=== PATIENT | female | born 1940 | race Two or more races ===

== ENCOUNTER 2024-02-25 18:53 | Inpatient (IN) | payer OTHER ==
[~2024-02-25] VITALS: Ht 160 cm; Wt 55.3 kg
[2024-02-25 20:15] LABS: BASOPHILS # (AUTO) 0.1 K/uL (0.0-0.2); BASOPHILS % (AUTO) 1.3 % (0.0-2.0); EOSINOPHILS # (AUTO) 0.2 K/uL (0.0-0.7); EOSINOPHILS % (AUTO) 2.9 % (0.0-6.0); HEMATOCRIT 34 % (33-45); HEMOGLOBIN 10.5 g/dL (11.5-14.8); LYMPHOCYTES # (AUTO) 1.3 K/uL (0.8-4.8); LYMPHOCYTES % (AUTO) 14.9 % (20.0-44.0); MEAN CORPUSCULAR HEMOGLOBIN 23 PG (26.0-33.0); MEAN CORPUSCULAR HGB CONC 31 g/dl (31.0-36.0); MEAN CORPUSCULAR VOLUME 74 fL (82-100); MONOCYTES # (AUTO) 0.7 K/uL (0.1-1.30); MONOCYTES % (AUTO) 7.7 % (2.0-12.0); NEUTROPHILS # (AUTO) 6.3 K/uL (1.8-8.9); NEUTROPHILS % (AUTO) 73.2 % (43.0-81.0); PLATELET COUNT (AUTO) 262 K/uL (150-450); RED BLOOD CELL COUNT(AUTO) 4.57 MIL/uL (4.0-5.2); RED CELL DISTRIBUTION WIDTH 16.1 % (11.5-15.0); WHITE BLOOD COUNT (AUTO) 8.5 K/uL (4.3-11.0)
[2024-02-25 20:31] LABS: ALANINE AMINOTRANSFERASE 20 U/L (12-78); ALBUMIN 2.8 g/dL (3.4-5.0); ALCOHOL, BLOOD < 3 mg/dL (0-10); ALKALINE PHOSPHATASE 84 U/L (46-116); ASPARTATE AMINOTRANSFERASE 18 U/L (15-37); BILIRUBIN,DIRECT 0.1 mg/dL (0.0-0.2); BILIRUBIN,TOTAL 0.3 mg/dL (0.2-1.0); CALCIUM, SERUM 9.3 mg/dL (8.5-10.1); CARBON DIOXIDE 29 mmol/L (21-32); CHLORIDE 109 mmol/L (98-107); CREATININE 1.1 mg/dL (0.6-1.3); GLUCOSE 105 mg/dL (74-106); POTASSIUM 4.1 mmol/L (3.5-5.1); SODIUM SERUM 142 mmol/L (136-145); TOTAL PROTEIN, SERUM 6.5 g/dL (6.4-8.2); UREA NITROGEN, BLOOD 19 mg/dL (7-18)
[2024-02-25 20:35] LABS: INR 0.92 (0.91-1.10); PARTIAL THROMBOPLASTIN TIME 21.3 SEC (24.3-34.3); PROTHROMBIN TIME 9.5 SECS (9.2-11.1)
[2024-02-25 20:53] LABS: SERUM AMMONIA 10 umol/L (11-32)
[2024-02-25 22:04] LABS: APPEARANCE,URINE Clear (CLEAR); BILIRUBIN,URINE Negative (NEGATIVE); BLOOD, URINE Negative Ery/uL (NEGATIVE); COLOR,URINE YELLOW (YELLOW); KETONES,URINE Negative (NEGATIVE); LEUKOCYTE ESTERASE ,URINE Negative (NEGATIVE); NITRITE, URINE Negative (NEGATIVE); PROTEIN,URINE Negative (NEGATIVE); UGLUCOSE Negative (NEGATIVE); UROBILINOGEN,URINE 0.2 EU/dL (0.2)
[2024-02-25] MEDS ORDERED: ACETAMINOPHEN 325 MG TABLET ONE (23:00)
[2024-02-25] MEDS: ACETAMINOPHEN 325 MG TABLET PO ONE (23:05)
[2024-02-26] MEDS ORDERED: Z GUARD REMEDY 4 OZ OINT TP PRN (00:30)
[2024-02-26] MEDS ORDERED: ZOLPIDEM TARTRATE 5 MG TABLET PO PRN (00:30)
[2024-02-26] MEDS ORDERED: ACETAMINOPHEN 325 MG TABLET PO PRN (00:30)
[2024-02-26] MEDS ORDERED: MAG HYDROX/AL HYDROX/SIMETH 30 ML UDC PO PRN (00:30)
[2024-02-26] MEDS ORDERED: MAGNESIUM HYDROXIDE 30 ML UDC PO PRN (00:30)
[2024-02-26] MEDS ORDERED: ONDANSETRON HCL/PF 4 MG/2 ML VIAL IVP PRN (00:30)
[2024-02-26] MEDS ORDERED: LEFL20TA PO (00:32)
[2024-02-26] MEDS ORDERED: BUPR200T31 PO (00:32)
[2024-02-26] MEDS ORDERED: MEMA10TA PO (00:32)
[2024-02-26] MEDS ORDERED: AMLO-213 PO (00:32)
[2024-02-26] MEDS ORDERED: DULO20CA PO (00:32)
[2024-02-26] MEDS ORDERED: OMEP20CA15 PO (00:32)
[2024-02-26] MEDS ORDERED: CHOL100062 PO (00:32)
[2024-02-26] MEDS ORDERED: CALC-1276 PO (00:32)
[2024-02-26] MEDS ORDERED: ATOR20TA PO (00:32)
[2024-02-26] MEDS ORDERED: LEVO137T24 PO (00:32)
[2024-02-26] MEDS ORDERED: NALOXONE PREFILLED SYRINGE 2 MG/2 ML SYRINGE ONE ×2 (00:52→00:54)
[2024-02-26 01:20] VITALS: BP 158/80; TEMP 98.2; O2SAT 97
[2024-02-26 04:00] VITALS: BP 145/78; TEMP 97.7; O2SAT 97
[2024-02-26 08:00] VITALS: BP 153/84; TEMP 97.7; O2SAT 96
[2024-02-26] MEDS ORDERED: MEMA5TAB42 PO (08:30)
[2024-02-26] MEDS ORDERED: BUPR100T7 PO (08:30)
[2024-02-26] MEDS ORDERED: CALC500T89 PO (08:30)
[2024-02-26] MEDS ORDERED: CHOL200059 PO (08:30)
[2024-02-26] MEDS ORDERED: ACET-637 PO (08:30)
[2024-02-26] MEDS ORDERED: DOCU100C36 PO (08:30)
[2024-02-26] MEDS ORDERED: FAMO20TA8 PO (08:31)
[2024-02-26] MEDS ORDERED: CICL6.6S19 TP (08:31)
[2024-02-26] MEDS ORDERED: POLY17PO4 PO (08:31)
[2024-02-26] MEDS ORDERED: FAMOTIDINE (20 MG) 20 MG TABLET PO PRN (09:00)
[2024-02-26] MEDS ORDERED: ACETAMINOPHEN ES 500 MG TABLET PO PRN (09:00)
[2024-02-26] MEDS: LEVOTHYROXINE SODIUM 137 MCG TABLET PO SCH (09:26)
[2024-02-26] MEDS: DULOXETINE HCL 20 MG CAPSULE.DR PO SCH (09:26)
[2024-02-26] MEDS: CALCIUM CARBONATE (1250) 500 MG TABLET PO SCH (09:27)
[2024-02-26] MEDS: MEMANTINE HCL 5 MG TABLET PO SCH (09:27)
[2024-02-26] MEDS: AMLODIPINE BESYLATE 10 MG TABLET PO SCH (09:27)
[2024-02-26] MEDS: IV NS 0.9% 1,000 ML IV SCH (09:28)
[2024-02-26] MEDS: LEFLUNOMIDE 20 MG TABLET PO SCH (09:33)
[2024-02-26] MEDS: buPROPion SR 100 MG TABLET.ER PO SCH (09:33)
[2024-02-26 12:00] VITALS: BP 164/71; TEMP 97.3; O2SAT 93
[2024-02-26 14:50] LABS: BASOPHILS # (AUTO) 0.1 K/uL (0.0-0.2); BASOPHILS % (AUTO) 0.6 % (0.0-2.0); EOSINOPHILS # (AUTO) 0.2 K/uL (0.0-0.7); EOSINOPHILS % (AUTO) 2.8 % (0.0-6.0); HEMATOCRIT 35 % (33-45); HEMOGLOBIN 10.8 g/dL (11.5-14.8); LYMPHOCYTES # (AUTO) 0.8 K/uL (0.8-4.8); LYMPHOCYTES % (AUTO) 10.6 % (20.0-44.0); MEAN CORPUSCULAR HEMOGLOBIN 23 PG (26.0-33.0); MEAN CORPUSCULAR HGB CONC 31 g/dl (31.0-36.0); MEAN CORPUSCULAR VOLUME 74 fL (82-100); MONOCYTES # (AUTO) 0.8 K/uL (0.1-1.30); MONOCYTES % (AUTO) 9.7 % (2.0-12.0); NEUTROPHILS # (AUTO) 6.1 K/uL (1.8-8.9); NEUTROPHILS % (AUTO) 76.3 % (43.0-81.0); PLATELET COUNT (AUTO) 209 K/uL (150-450); RED BLOOD CELL COUNT(AUTO) 4.67 MIL/uL (4.0-5.2); RED CELL DISTRIBUTION WIDTH 16.5 % (11.5-15.0)
[2024-02-26 15:00] LABS: CALCIUM, SERUM 9.8 mg/dL (8.5-10.1); CARBON DIOXIDE 26 mmol/L (21-32); CHLORIDE 108 mmol/L (98-107); CREATININE 0.6 mg/dL (0.6-1.3); GLUCOSE 91 mg/dL (74-106); POTASSIUM 3.8 mmol/L (3.5-5.1); SODIUM SERUM 141 mmol/L (136-145); UREA NITROGEN, BLOOD 11 mg/dL (7-18)
[2024-02-26] MEDS ORDERED: ATORVASTATIN 10 MG TABLET PO SCH (18:00)
== END 2024-02-26 17:39 | disposition short-term general hospital (02) | DRG 56 ==
LOC: ER 18:55 → TELE1 02-26 00:20
PROVIDERS: ADMIT Student in an Organized Health Care Education/Training Program; ATTEND Student in an Organized Health Care Education/Training Program
DX: G91.2 (Idiopathic) normal pressure hydrocephalus (principal); I21.A1 Myocardial infarction type 2; E44.0 Moderate protein-calorie malnutrition; W19.XXXA Unspecified fall, initial encounter; F03.90 Unspecified dementia, unspecified severity, without behavioral disturbance, psychotic disturbance, mood disturbance, and anxiety; E03.9 Hypothyroidism, unspecified; D64.9 Anemia, unspecified; E86.0 Dehydration; Z88.2 Allergy status to sulfonamides; R29.6 Repeated falls; I10 Essential (primary) hypertension; Z68.21 Body mass index [BMI] 21.0-21.9, adult; Y93.9 Activity, unspecified; Y92.89 Other specified places as the place of occurrence of the external cause; R90.89 Other abnormal findings on diagnostic imaging of central nervous system
CPT/HCPCS: 36415; 70450-TC; 71045-TC; 72125-TC; 80048-TC; 80076-TC; 82140-TC; 82962-TC; 84443-TC; 84484-TC; 85025-TC; 85730-TC; 93307-TC; G0378; G0480; J2310

== ENCOUNTER 2024-05-19 21:50 | Emergency (ER) | payer OTHER ==
[~2024-05-19] VITALS: Ht 149.9 cm; Wt 43.1 kg
[~2024-05-19 21:50] MED LIST: ACET-637 PO; AMLO-213 PO; ATOR20TA PO; BUPR100T7 PO; CALC500T89 PO; CHOL200059 PO; CICL6.6S19 TP; DOCU100C36 PO; DULO20CA PO; FAMO20TA8 PO; LEFL20TA PO; LEVO137T24 PO; MEMA5TAB42 PO; OMEP20CA15 PO; POLY17PO4 PO
[2024-05-19 22:05] VITALS: TEMP 97.9
[2024-05-19] MEDS ORDERED: ACETAMINOPHEN ES 500 MG TABLET ONE (22:55)
[2024-05-19] MEDS: ACETAMINOPHEN ES 500 MG TABLET PO ONE (23:00)
[2024-05-19 23:05] LABS: BASOPHILS # (AUTO) 0.1 K/uL (0.0-0.2); BASOPHILS % (AUTO) 0.6 % (0.0-2.0); EOSINOPHILS # (AUTO) 0.2 K/uL (0.0-0.7); EOSINOPHILS % (AUTO) 1.8 % (0.0-6.0); HEMATOCRIT 36 % (33-45); HEMOGLOBIN 11.1 g/dL (11.5-14.8); LYMPHOCYTES # (AUTO) 1.3 K/uL (0.8-4.8); LYMPHOCYTES % (AUTO) 10.9 % (20.0-44.0); MEAN CORPUSCULAR HEMOGLOBIN 23 PG (26.0-33.0); MEAN CORPUSCULAR HGB CONC 31 g/dl (31.0-36.0); MEAN CORPUSCULAR VOLUME 75 fL (82-100); MONOCYTES # (AUTO) 0.8 K/uL (0.1-1.30); MONOCYTES % (AUTO) 6.5 % (2.0-12.0); NEUTROPHILS # (AUTO) 9.3 K/uL (1.8-8.9); NEUTROPHILS % (AUTO) 80.2 % (43.0-81.0); PLATELET COUNT (AUTO) 216 K/uL (150-450); RED BLOOD CELL COUNT(AUTO) 4.76 MIL/uL (4.0-5.2); WHITE BLOOD COUNT (AUTO) 11.6 K/uL (4.3-11.0)
[2024-05-19 23:15] LABS: CALCIUM, SERUM 10.3 mg/dL (8.5-10.1); CARBON DIOXIDE 29 mmol/L (21-32); CHLORIDE 108 mmol/L (98-107); CREATININE 0.9 mg/dL (0.6-1.3); GLUCOSE 116 mg/dL (74-106); POTASSIUM 3.9 mmol/L (3.5-5.1); SODIUM SERUM 143 mmol/L (136-145); UREA NITROGEN, BLOOD 21 mg/dL (7-18)
[2024-05-19 23:19] LABS: ALANINE AMINOTRANSFERASE 29 U/L (12-78); ALBUMIN 2.8 g/dL (3.4-5.0); ALKALINE PHOSPHATASE 86 U/L (46-116); ASPARTATE AMINOTRANSFERASE 15 U/L (15-37); BILIRUBIN,DIRECT 0.1 mg/dL (0.0-0.2); BILIRUBIN,TOTAL 0.3 mg/dL (0.2-1.0); NT-PRO BNP 213 pg/mL (0-125); TOTAL PROTEIN, SERUM 6.9 g/dL (6.4-8.2)
[2024-05-20] MEDS: ASPIRIN 325 MG TABLET PO ONE (03:02)
[2024-05-20 05:38] LABS: APPEARANCE,URINE CLEAR (CLEAR); BILIRUBIN,URINE NEGATIVE (NEGATIVE); BLOOD, URINE NEGATIVE Ery/uL (NEGATIVE); COLOR,URINE YELLOW (YELLOW); KETONES,URINE NEGATIVE (NEGATIVE); LEUKOCYTE ESTERASE ,URINE NEGATIVE (NEGATIVE); NITRITE, URINE NEGATIVE (NEGATIVE); PROTEIN,URINE NEGATIVE (NEGATIVE); UGLUCOSE NEGATIVE (NEGATIVE); UROBILINOGEN,URINE 0.2 EU/dL (0.2)
[2024-05-20 06:02] VITALS: BP 147/73; O2SAT 95
== END 2024-05-20 07:53 | disposition short-term general hospital (02) ==
LOC: ER 21:53
DX: S09.8XXA Other specified injuries of head, initial encounter (principal); F03.90 Unspecified dementia, unspecified severity, without behavioral disturbance, psychotic disturbance, mood disturbance, and anxiety; E03.9 Hypothyroidism, unspecified; I10 Essential (primary) hypertension; F32.9 Major depressive disorder, single episode, unspecified; Z88.8 Allergy status to other drugs, medicaments and biological substances; Z88.2 Allergy status to sulfonamides; W18.39XA Other fall on same level, initial encounter; Y93.89 Activity, other specified; Y92.89 Other specified places as the place of occurrence of the external cause; Y99.8 Other external cause status
CPT/HCPCS: 36415; 70450-TC; 71045-TC; 72125-TC; 72170-TC; 80048-TC; 80076-TC; 82962-TC; 83880; 84484-TC; 85025-TC; 87086-TC

== ENCOUNTER 2024-07-18 00:50 | Emergency (ER) | payer OTHER ==
[~2024-07-18] VITALS: Ht 160 cm; Wt 49.9 kg
[2024-07-18 01:54] LABS: BASOPHILS # (AUTO) 0.1 K/uL (0.0-0.2); BASOPHILS % (AUTO) 0.8 % (0.0-2.0); EOSINOPHILS # (AUTO) 0.2 K/uL (0.0-0.7); EOSINOPHILS % (AUTO) 2.8 % (0.0-6.0); HEMATOCRIT 35 % (33-45); HEMOGLOBIN 11.4 g/dL (11.5-14.8); LYMPHOCYTES # (AUTO) 1.4 K/uL (0.8-4.8); LYMPHOCYTES % (AUTO) 15.8 % (20.0-44.0); MEAN CORPUSCULAR HEMOGLOBIN 25 PG (26.0-33.0); MEAN CORPUSCULAR HGB CONC 32 g/dl (31.0-36.0); MEAN CORPUSCULAR VOLUME 76 fL (82-100); MONOCYTES # (AUTO) 0.7 K/uL (0.1-1.30); MONOCYTES % (AUTO) 8.5 % (2.0-12.0); NEUTROPHILS # (AUTO) 6.2 K/uL (1.8-8.9); NEUTROPHILS % (AUTO) 72.1 % (43.0-81.0); PLATELET COUNT (AUTO) 246 K/uL (150-450); RED BLOOD CELL COUNT(AUTO) 4.64 MIL/uL (4.0-5.2); RED CELL DISTRIBUTION WIDTH 15.9 % (11.5-15.0); WHITE BLOOD COUNT (AUTO) 8.6 K/uL (4.3-11.0)
[2024-07-18 02:09] LABS: CALCIUM, SERUM 9.9 mg/dL (8.5-10.1); CARBON DIOXIDE 29 mmol/L (21-32); CHLORIDE 110 mmol/L (98-107); CREATININE 0.9 mg/dL (0.6-1.3); GLUCOSE 121 mg/dL (74-106); SODIUM SERUM 144 mmol/L (136-145); UREA NITROGEN, BLOOD 20 mg/dL (7-18)
[2024-07-18 02:15] LABS: ALANINE AMINOTRANSFERASE 33 U/L (12-78); ALBUMIN 2.7 g/dL (3.4-5.0); ALKALINE PHOSPHATASE 81 U/L (46-116); ASPARTATE AMINOTRANSFERASE 18 U/L (15-37); BILIRUBIN,TOTAL 0.2 mg/dL (0.2-1.0); NT-PRO BNP 641 pg/mL (0-125); TOTAL PROTEIN, SERUM 6.5 g/dL (6.4-8.2)
[2024-07-18 04:13] LABS: APPEARANCE,URINE CLEAR (CLEAR); BILIRUBIN,URINE NEGATIVE (NEGATIVE); BLOOD, URINE NEGATIVE Ery/uL (NEGATIVE); COLOR,URINE YELLOW (YELLOW); KETONES,URINE NEGATIVE (NEGATIVE); LEUKOCYTE ESTERASE ,URINE NEGATIVE (NEGATIVE); NITRITE, URINE NEGATIVE (NEGATIVE); PROTEIN,URINE NEGATIVE (NEGATIVE); UGLUCOSE NEGATIVE (NEGATIVE); UROBILINOGEN,URINE 0.2 EU/dL (0.2)
[2024-07-18] MEDS ORDERED: ASPIRIN 81 MG TAB.CHEW ONE (06:56)
[2024-07-18] MEDS: ASPIRIN 81 MG TAB.CHEW PO ONE (07:02)
[2024-07-18 07:30] VITALS: BP 150/84; TEMP 98; O2SAT 99
== END 2024-07-18 08:46 | disposition short-term general hospital (02) ==
LOC: ER 00:51
DX: I11.0 Hypertensive heart disease with heart failure (principal); M25.512 Pain in left shoulder; F03.93 Unspecified dementia, unspecified severity, with mood disturbance; E03.9 Hypothyroidism, unspecified; F32.A Depression, unspecified; Z88.2 Allergy status to sulfonamides; W06.XXXA Fall from bed, initial encounter
CPT/HCPCS: 36415; 70450-TC; 71045-TC; 73030-TC; 80053-TC; 83880; 84484-TC; 85025-TC

== ENCOUNTER 2024-10-08 05:26 | Emergency (ER) | payer OTHER ==
[~2024-10-08] VITALS: Ht 160 cm; Wt 55.3 kg
[2024-10-08] MEDS ORDERED: ACETAMINOPHEN 325 MG TABLET ONE (05:48)
[2024-10-08] MEDS: ACETAMINOPHEN 325 MG TABLET PO ONE (05:52)
[2024-10-08 11:12] VITALS: BP 101/78; TEMP 98.4; O2SAT 94
== END 2024-10-08 11:14 ==
LOC: ER 05:29
DX: R10.2 Pelvic and perineal pain (principal); E03.9 Hypothyroidism, unspecified; F03.90 Unspecified dementia, unspecified severity, without behavioral disturbance, psychotic disturbance, mood disturbance, and anxiety; I10 Essential (primary) hypertension; Z79.69 Long term (current) use of other immunomodulators and immunosuppressants; Z79.890 Hormone replacement therapy; Z79.899 Other long term (current) drug therapy; Z88.2 Allergy status to sulfonamides; Z88.8 Allergy status to other drugs, medicaments and biological substances; Z91.041 Radiographic dye allergy status; W18.30XA Fall on same level, unspecified, initial encounter; Y93.89 Activity, other specified; Y92.89 Other specified places as the place of occurrence of the external cause; Y99.8 Other external cause status
CPT/HCPCS: 72170-TC

== ENCOUNTER 2024-10-28 22:49 | Inpatient (IN) | payer OTHER ==
[~2024-10-28] VITALS: Ht 162.6 cm; Wt 61.2 kg
[2024-10-28 23:47] LABS: BASOPHILS # (AUTO) 0.1 K/uL (0.0-0.2); BASOPHILS % (AUTO) 0.7 % (0.0-2.0); EOSINOPHILS # (AUTO) 0.2 K/uL (0.0-0.7); EOSINOPHILS % (AUTO) 2.3 % (0.0-6.0); HEMATOCRIT 33 % (33-45); HEMOGLOBIN 10.4 g/dL (11.5-14.8); LYMPHOCYTES # (AUTO) 0.8 K/uL (0.8-4.8); LYMPHOCYTES % (AUTO) 7.1 % (20.0-44.0); MEAN CORPUSCULAR HEMOGLOBIN 23 PG (26.0-33.0); MEAN CORPUSCULAR HGB CONC 31 g/dl (31.0-36.0); MEAN CORPUSCULAR VOLUME 75 fL (82-100); MONOCYTES # (AUTO) 0.5 K/uL (0.1-1.30); MONOCYTES % (AUTO) 4.8 % (2.0-12.0); NEUTROPHILS % (AUTO) 85.1 % (43.0-81.0); PLATELET COUNT (AUTO) 333 K/uL (150-450); RED BLOOD CELL COUNT(AUTO) 4.49 MIL/uL (4.0-5.2); RED CELL DISTRIBUTION WIDTH 14.7 % (11.5-15.0); WHITE BLOOD COUNT (AUTO) 10.6 K/uL (4.3-11.0)
[2024-10-29 00:14] LABS: ALANINE AMINOTRANSFERASE 13 U/L (12-78); ALKALINE PHOSPHATASE 72 U/L (46-116); ASPARTATE AMINOTRANSFERASE 15 U/L (15-37); BILIRUBIN,DIRECT 0.1 mg/dL (0.0-0.2); BILIRUBIN,TOTAL 0.3 mg/dL (0.2-1.0); CALCIUM, SERUM 10.3 mg/dL (8.5-10.1); CARBON DIOXIDE 33 mmol/L (21-32); CHLORIDE 106 mmol/L (98-107); CREATININE 0.8 mg/dL (0.6-1.3); GLUCOSE 147 mg/dL (74-106); NT-PRO BNP 614 pg/mL (0-125); POTASSIUM 4.3 mmol/L (3.5-5.1); SODIUM SERUM 143 mmol/L (136-145); TOTAL PROTEIN, SERUM 7.2 g/dL (6.4-8.2); UREA NITROGEN, BLOOD 17 mg/dL (7-18)
[2024-10-29] MEDS: FUROSEMIDE 20 MG/2 ML VIAL IV ONE (00:29)
[2024-10-29] MEDS ORDERED: FUROSEMIDE 20 MG/2 ML VIAL ONE (00:29)
[2024-10-29] MEDS: ASPIRIN 325 MG TABLET PO ONE (00:29)
[2024-10-29] MEDS ORDERED: ASPIRIN 325 MG TABLET ONE (00:29)
[2024-10-29 00:42] LABS: INR 1.03 (0.91-1.10); PROTHROMBIN TIME 10.9 SECS (9.2-11.1)
[2024-10-29] MEDS: LORAZEPAM INJ 2 MG/ML VIAL IV ONE (05:12)
[2024-10-29] MEDS ORDERED: LORAZEPAM INJ 2 MG/ML VIAL ONE (05:12)
[2024-10-29 05:23] VITALS: TEMP 98.6
[2024-10-29 09:12] VITALS: BP 123/66; O2SAT 100
[2024-10-29] MEDS ORDERED: ONDANSETRON HCL/PF 4 MG/2 ML VIAL IVP PRN (12:00)
[2024-10-29] MEDS ORDERED: ACETAMINOPHEN 325 MG TABLET PO PRN (12:00)
[2024-10-29] MEDS ORDERED: MAG HYDROX/AL HYDROX/SIMETH 30 ML UDC PO PRN (12:00)
[2024-10-29] MEDS ORDERED: Z GUARD REMEDY 4 OZ OINT TP PRN (12:00)
[2024-10-29] MEDS ORDERED: ZOLPIDEM TARTRATE 5 MG TABLET PO PRN (12:00)
[2024-10-29] MEDS ORDERED: MAGNESIUM HYDROXIDE 30 ML UDC PO PRN (12:00)
[2024-10-29] MEDS: ENOXAPARIN SODIUM 40 MG/0.4 ML DISP.SYRIN SQ SCH (12:00)
[2024-10-29] MEDS ORDERED: MAGN400O6 PO (15:51)
[2024-10-29] MEDS ORDERED: GUAI100S4 PO (15:51)
[2024-10-29] MEDS ORDERED: MULT-213 PO (15:51)
[2024-10-29] MEDS ORDERED: MAG-135 PO (15:51)
[2024-10-29] MEDS ORDERED: BISA10SU11 RC (15:51)
[2024-10-29] MEDS ORDERED: BENZ1LOZ PO (15:51)
[2024-10-29] MEDS ORDERED: IBUP-2715 PO (15:51)
[2024-10-30] MEDS ORDERED: PANTOPRAZOLE 40 MG TABLET.DR PO SCH (07:30)
== END 2024-10-29 19:59 | DRG 281 ==
LOC: ER 22:51 → TELE1 10-29 13:45
PROVIDERS: ADMIT Student in an Organized Health Care Education/Training Program; ATTEND Student in an Organized Health Care Education/Training Program
DX: I21.A1 Myocardial infarction type 2 (principal); F03.93 Unspecified dementia, unspecified severity, with mood disturbance; E78.5 Hyperlipidemia, unspecified; E03.9 Hypothyroidism, unspecified; F32.9 Major depressive disorder, single episode, unspecified; I11.0 Hypertensive heart disease with heart failure; I50.9 Heart failure, unspecified; Z79.82 Long term (current) use of aspirin; Z88.2 Allergy status to sulfonamides
CPT/HCPCS: 36415; 71045-TC; 80048-TC; 80076-TC; 83880; 84484-TC; 85025-TC; 85730-TC; 93307-TC; G0378; J1650; J1940; J2060